=== PATIENT | male | born 1960 | race Caucasian/White ===

== ENCOUNTER 2018-06-26 12:25 | Emergency (ER) | payer BC ==
--- NOTE | 2018-06-26 12:31 | UC ---
Ear Complaint HPI - HPI Summary HPI Summary: 58 yo male presents with RIGHT ear pain for the last 4 days. He tells me that he was scuba diving in the [place] last week. About 4 days ago noticed some pain and muffled sounds to his right ear. Has had swimmer's ear in the past and this felt similar, so he used OTC alcohol drops with some relief - but the muffled sounds continued. Denies fever, sinus symptoms, sore throat, cough. - History of Current Complaint Stated Complaint: EAR PAIN Time Seen by Provider: 06/26/18 12:30 Hx Obtained From: Patient Onset/Duration: Gradual Onset Severity Initially: Mild Severity Currently: Mild Pain Intensity: 3 Pain Scale Used: 0-10 Numeric - Allergies/Home Medications Allergies/Adverse Reactions: Allergies Allergy/AdvReac Type Severity Reaction Status Date / Time No Known Allergies Allergy Verified 06/26/18 12:33 PMH/Surg Hx/FS Hx/Imm Hx - Additional Past Medical History Additional PMH: None - Family History Known Family History: Positive: None - Social History Occupation: Employed Full-time Lives: With Family Alcohol Use: None Substance Use Type: None Smoking Status (MU): Never Smoked Tobacco Review of Systems All Other Systems Reviewed And Are Negative: Yes Constitutional: Positive: Negative Skin: Positive: Negative Eyes: Positive: Negative ENT: Positive: Ear Ache Respiratory: Positive: Negative Cardiovascular: Positive: Negative Gastrointestinal: Positive: Negative Neurovascular: Positive: Negative Neurological: Positive: Negative Psychological: Positive: Negative Physical Exam - Summary Physical Exam Summary: GENERAL: NAD. WDWN. No pain distress. SKIN: No rashes, sores, lesions, or open wounds. HEENT: Head: AT/NC Eyes: EOM intact. Conjunctiva clear without inflammation or discharge. Ears: Hearing grossly normal. RIGHT TM intact and WNL. Ear canal with mild edema and moderate white/yellow purulent material. NTTP mastoid or tragus. Left TM WNL and intact without canal edema or drainage. Nose: Nasal mucosa pink and moist. NTTP maxillary and frontal sinus. Throat: Posterior oropharynx without exudates, erythema, or tonsillar enlargement. Uvula midline. NECK: Supple. Nontender. No lymphadenopathy. CHEST: CTAB. No r/r/w. No accessory muscle use. Breathing comfortably and in no distress. CV: RRR. Without m/r/g. Pulses intact. NEURO: Alert. PSYCH: Age appropriate behavior. Triage Information Reviewed: Yes Vital Signs: Vital Signs: Temp Pulse Resp BP Pulse Ox 97.8 F 57 14 151/99 99 06/26/18 12:29 06/26/18 12:29 06/26/18 12:29 06/26/18 12:29 06/26/18 12:29 Vital Signs Reviewed: Yes Ear Complaint Course/Dx - Course Course Of Treatment: right otitis externa - Differential Dx/Diagnosis Provider Diagnosis: Otitis externa Discharge - Sign-Out/Discharge Documenting (check all that apply): Patient Departure All imaging exams completed and their final reports reviewed: No Studies - Discharge Plan Condition: Stable Disposition: HOME Prescriptions: Ofloxacin 0.3% (Ear Drop)* [Floxin 0.3% OTIC.BRIDGETTE (Ear Drop)] 5 drop RIGHT EAR BID #1 btl Patient Education Materials: Otitis Externa (ED) Referrals: Nolvia Garcia MD [Primary Care Provider] - Additional Instructions: If you develop a fever, shortness of breath, chest pain, new or worsening symptoms - please call your PCP or go to the ED. Your blood pressure was high at todays visit. Please see your primary provider within 4 weeks for recheck and re-evaluation. - Billing Disposition and Condition Condition: STABLE Disposition: Home - Attestation Statements Provider Attestation: I was available for consult. This patient was seen by the NARENDRA. The patient was not presented to, seen by, or examined by me. -Holly
[2018-06-26 12:33] VITALS: BP 151/99
== END 2018-06-26 12:43 | disposition home or self-care (01) ==
LOC: UCEAST 12:25
DX: H60.91 Unspecified otitis externa, right ear (principal)
CPT/HCPCS: 99212; G0463